=== PATIENT | female | born 1970 | race Caucasian/White ===

== ENCOUNTER → 2019-08-04 07:22 | Outpatient (CLI) | payer OTHER, SELFPAY ==
[2019-08-04 08:36] LABS: Add Manual Diff / Slide Review NO; Basophils Absolute Auto 100 /uL (0-100); Eosinophils Absolute Auto 200 /uL (0-450); Eosinophils Percent Auto 2.9 % (2-4); Hematocrit 42.6 % (36-46); Hemoglobin 14.3 g/dL (12.0-16.0); Lymphocytes Absolute Auto 1800 /uL (1100-4500); Lymphocytes Percent Auto 29.6 % (25-40); Mean Corpuscular HGB Conc 33.5 % (30-36); Mean Corpuscular Hemoglobin 28.4 PG (26-34); Mean Corpuscular Volume 84.7 fL (80-100); Monocytes Absolute Auto 300 /uL (0-900); Monocytes Percent Auto 5.6 % (3-14); Neutrophils Absolute Auto 3700 /uL (1500-7000); Neutrophils Percent Auto 60.9 % (50-75); Platelet Count 197 X10^3/uL (150-400); Red Blood Cell Count 5.03 X10^6/uL (4.0-5.2); Red Cell Distribution Width 12.7 % (11.6-14.8); White Blood Cell Count 6.1 X10^3/uL (4.5-11.0)
[2019-08-04 09:02] LABS: Alanine Aminotransferase 25 IU/L (9-52); Albumin 4.4 g/dL (3.5-5.0); Albumin Globulin Ratio 1.5 (1.0-2.8); Alkaline Phosphatase 77 U/L (38-126); Aspartate Aminotransferase 27 IU/L (14-36); BUN Creatinine Ratio 18.9 (6-22); Bilirubin Total 0.4 mg/dL (0.2-1.3); Blood Urea Nitrogen 17 mg/dL (7-17); Calcium 9.2 mg/dL (8.4-10.2); Carbon Dioxide 29 mmol/L (22-32); Chloride 105 mmol/L (98-107); Cholesterol 215 mg/dL (140-199); Estimated Glomerular Filt Rate > 60.0 mL/min (>60); Globulin 2.9 g/dL (1.7-4.1); Glucose 98 mg/dL (70-100); HDL Cholesterol 55 mg/dL (40-60); HEMOLYSIS < 15 (0-50); LDL Cholesterol Calculated 144 mg/dL (<100); Potassium 4.7 mmol/L (3.4-5.1); Sodium 138 mmol/L (137-145); Total Protein 7.3 g/dL (6.3-8.2); Triglycerides 79 mg/dL (35-150)
[2019-08-04 09:17] LABS: Free T3, Triiodothyronine Free 3.51 pg/mL (2.77-5.27); Free T4, Direct Thyroxine 0.93 ng/dL (0.78-2.19)
[2019-08-04 09:31] LABS: Thyroid Stimulating Hormone 1.98 uIU/mL (0.47-4.68)
[2019-08-07 13:36] LABS: Thyroid Peroxidase Antibodies 5 IU/mL (< 9)
== END ==
PROVIDERS: Visit Provider Naturopath
DX: Z00.00 Encounter for general adult medical examination without abnormal findings (principal); D50.0 Iron deficiency anemia secondary to blood loss (chronic); R53.83 Other fatigue
CPT/HCPCS: 36415; 80053; 80061; 82728; 84439; 84443; 84481; 85025; 86376

== ENCOUNTER → 2020-06-09 14:11 | Outpatient (CLI) | payer OTHER, SELFPAY ==
--- NOTE | 2020-06-09 14:13 | DI.US.S_ITS ---
PROCEDURE: US ABDOMEN LIMITED INDICATIONS: abdominal lump TECHNIQUE: Real-time focused scanning was performed of the abdomen, with image documentation. COMPARISON: None. FINDINGS: Scanning is performed at the area of the periumbilical lump. At this site, just superior to the umbilicus, there is a hernia, which demonstrates a neck measuring 8 millimeters. The herniated material measures 2.8 x 1.5 x 2.3 centimeters. Peristalsis can be seen at the level of the hernia neck. This likely contains a small amount of small bowel as well as fat. IMPRESSION: Hernia seen just superior to the umbilicus. This hernia appears to contain both fat and a small amount of small bowel. A surgical consultation is recommended. If clinically appropriate, a dedicated CT of the abdomen pelvis with IV and oral contrast should also be considered. Dictated by: Dno Carrasquillo M.D. on 06/09/2020 at 14:38 Approved by: Don Carrasquillo M.D. on 06/09/2020 at 14:40
== END ==
PROVIDERS: PCP Registered Nurse; Referring Provider Registered Nurse; Visit Provider Registered Nurse
DX: K42.9 Umbilical hernia without obstruction or gangrene (principal)
CPT/HCPCS: 76705

== ENCOUNTER → 2020-06-24 06:55 | Outpatient (CLI) | payer OTHER, SELFPAY ==
[2020-06-24 07:40] LABS: Add Manual Diff / Slide Review NO; Basophils Absolute Auto 100 /uL (0-100); Basophils Percent Auto 0.7 % (0-2); Eosinophils Absolute Auto 200 /uL (0-450); Eosinophils Percent Auto 2.8 % (2-4); Hematocrit 41.1 % (36-46); Hemoglobin 13.7 g/dL (12.0-16.0); Lymphocytes Absolute Auto 1800 /uL (1100-4500); Lymphocytes Percent Auto 24.7 % (25-40); Mean Corpuscular HGB Conc 33.4 % (30-36); Mean Corpuscular Hemoglobin 28.5 PG (26-34); Mean Corpuscular Volume 85.4 fL (80-100); Monocytes Absolute Auto 400 /uL (0-900); Monocytes Percent Auto 5.5 % (3-14); Neutrophils Absolute Auto 5000 /uL (1500-7000); Neutrophils Percent Auto 66.3 % (50-75); Platelet Count 220 X10^3/uL (150-400); Red Blood Cell Count 4.82 X10^6/uL (4.0-5.2); Red Cell Distribution Width 12.6 % (11.6-14.8); White Blood Cell Count 7.5 X10^3/uL (4.5-11.0)
[2020-06-24 08:14] LABS: Cholesterol 199 mg/dL (140-199); HDL Cholesterol 63 mg/dL (40-60); LDL Cholesterol Calculated 121 mg/dL (<100); Triglycerides 73 mg/dL (35-150)
--- NOTE | 2020-06-24 08:21 | DI.CT.S_ITS ---
PROCEDURE: CT ABDOMEN PELVIS W CON INDICATIONS: umbilical LLQ pain r/o diverticulitis.Incarcerated hernia TECHNIQUE: After the administration of intravenous contrast, 5 mm thick sections acquired from the diaphragm to the symphysis. 5 mm coronal and sagittal reformats were acquired. For radiation dose reduction, the following was used: automated exposure control, adjustment of mA and/or kV according to patient size. COMPARISON: None. FINDINGS: Image quality: Excellent. ABDOMEN: Lung bases: Lung bases are clear. Heart size is normal. Solid organs: Liver is normal in size and enhancement. Gallbladder appears normal . Biliary system is non dilated. Pancreas enhances normally. Spleen is normal in size and enhancement. No adrenal nodules. Kidneys demonstrate normal size and enhancement, without hydronephrosis. Peritoneum and bowel: Bowel loops demonstrate normal wall thickness and caliber. No free fluid or air. Nodes and vessels: No retroperitoneal or mesenteric adenopathy by size criteria. Aorta and inferior vena cava are normal in size. Miscellaneous: No ventral hernias. PELVIS: Genitourinary: Bladder wall thickness is normal. Miscellaneous: No inguinal hernias or adenopathy. At the left lower quadrant involving the far inferior aspect of the descending colon there is mild peridiverticular inflammation in the mesenteric fat. No abscess is present. Diverticulosis is present, mild in severity, elsewhere. Bones: No suspicious bony lesions. No vertebral body compression fractures. IMPRESSION: Mild acute diverticulitis involving the transition from the descending colon into the sigmoid colon, without peridiverticular abscess. No additional abnormality elsewhere seen. Only minimal diverticulosis is present without inflammation through the remainder of the sigmoid colon. Dictated by: Randolph Nolasco M.D. on 06/24/2020 at 8:26 Approved by: Randolph Nolasco M.D. on 06/24/2020 at 8:35
== END ==
PROVIDERS: PCP Registered Nurse; Referring Provider Registered Nurse; Visit Provider Specialist
DX: K57.32 Diverticulitis of large intestine without perforation or abscess without bleeding (principal); R10.32 Left lower quadrant pain; E78.5 Hyperlipidemia, unspecified
CPT/HCPCS: 36415; 74177; 80061; 85025; Q9967

== ENCOUNTER → 2020-07-01 13:37 | Outpatient (CLI) | payer OTHER, SELFPAY ==
[2020-07-03 15:05] LABS: COVID19 Sendout Not Detected (Not Detect)
== END ==
PROVIDERS: PCP Registered Nurse; Visit Provider Physician Assistant
DX: Z11.59 Encounter for screening for other viral diseases (principal)
CPT/HCPCS: 87635

== ENCOUNTER 2020-07-04 09:17 | Day surgery (SDC) | payer OTHER, SELFPAY ==
[2020-06-29 10:47] VITALS: BMI 28.3
[2020-07-04] VITALS (9 sets, daily range): BP systolic 108–120; BP diastolic 68–76; PULSE 61–78; RESP 11–20; TEMP 36.4–36.9; O2SAT 95–97; BMI 28.5
[2020-07-04] MEDS: ACETAMINOPHEN 325 MG TABLET 975 MG PO (10:04)
[2020-07-04] MEDS: LACTATED RINGERS 1,000 ML 100 ML IV (10:05)
[2020-07-04] MEDS: SCOPOLAMINE 1 PATCH TOP (10:15)
--- NOTE | 2020-07-04 10:32 | PM.PREOP ---
Pre-operative Note COVID-19 COVID-19 status: Negative Result date/Date tested (Pos, Neg/Pending): 07/01/20 Interval Note History & Physical reviewed/Exam performed by Physician: Yes Changes to H&P: No
[2020-07-04] MEDS: CEFAZOLIN 2 GM/100 ML FROZ.PIGGY IV (10:44)
--- NOTE | 2020-07-04 11:11 | SUR.OPER ---
Supine on padded OR bed, head on pillow, arms secured on padded arm boards at <90 degrees abduction, legs uncrossed, safety belt at thigh, tape over blanket over lower legs.
[2020-07-04] MEDS: BUPIVACAINE 0.5% (PF) VIAL 30 ML INJ (11:13)
--- NOTE | 2020-07-04 11:51 | P.OP_ITS ---
Operative Date/Time/Diagnoses Date of procedure: 07/04/20 Time of procedure: 11:52 Pre-op diagnosis: Supraumbilical ventral hernia Post-op diagnosis: same (Incarcerated) Procedure & Clinicians Procedure: Repair without mesh Same procedure as scheduled: Yes Indications: Symptomatic hernia above the umbilicus. Surgeon: Markos Harding Click Yes if Unassisted: Yes Anesthesia Type: General Operative Notes Findings: Small defect above the umbilicus. Closed with 1 stitch [id number] suture. Incarcerated fat found and had to be removed as I could not reduce it due to the small size of her hernia. Closure Type: primary Specimen(s): none sent Prosthetic devices, grafts, tissues, transplants, or devices: None Estimated Blood Loss (mL): 5 Blood products transfused: none Procedure in detail: Patient was placed supine on the operating room table and underwent general LMA anesthesia. She was prepped and draped in the usual fashion. A small incision was made above the umbilicus and carried down under direct vision to the level of the hernia sac it was from surrounding structures and was above the umbilicus. Sac was entered and the preperitoneal fat within it could not be reduced to the small size of the hernia. I therefore removed the fat and cleared the fascial edge. I then closed the defect with a 1. [id number] Ethibond suture. The subcu was closed with interrupted 3 0 Vicryl and the skin was closed running 4 0 Vicryl subcuticular stitch and Steri- Strips. Dressing was applied and the patient was awakened and taken recovery area in good condition. Complications: none Post-operative Condition: stable Disposition: PACU Plan for aftercare: Follow-up in the office
[2020-07-04] MEDS: OXYCODONE IR 5 MG TABLET PO ×2 (12:17→12:47)
--- NOTE | 2020-07-04 12:31 | SUR.PHASEI ---
Tolerating PO intake well/medicated as charted. Pt drowsy, responsive and appropriate. Report was given to Rodrigue Stephenson RN. Dressing CDI
== END 2020-07-04 13:21 | disposition home or self-care (01) ==
PROVIDERS: PCP Registered Nurse; Referring Provider Specialist; Visit Provider Specialist
PROC: (CPT 49561; principal; 2020-07-04 10:45)
DX: K43.6 Other and unspecified ventral hernia with obstruction, without gangrene (principal)
CPT/HCPCS: 49561; 49568; J0330; J0690; J1100; J1885; J2250; J2405; J2704; J3010

== ENCOUNTER → 2020-08-23 14:09 | Outpatient (CLI) | payer OTHER, SELFPAY ==
[2020-08-23 15:15] LABS: Alanine Aminotransferase 33 IU/L (<35); Albumin 4.3 g/dL (3.5-5.0); Albumin Globulin Ratio 1.5 (1.0-2.8); Alkaline Phosphatase 76 U/L (38-126); Aspartate Aminotransferase 34 IU/L (14-36); Bilirubin Total 0.5 mg/dL (0.2-1.3); Blood Urea Nitrogen 18 mg/dL (7-17); Calcium 9.3 mg/dL (8.4-10.2); Carbon Dioxide 29 mmol/L (22-32); Chloride 104 mmol/L (98-107); Estimated Glomerular Filt Rate > 60.0 mL/min (>60); Globulin 2.9 g/dL (1.7-4.1); Glucose 97 mg/dL (70-100); HEMOLYSIS < 15 (0-50); Potassium 3.6 mmol/L (3.4-5.1); Sodium 137 mmol/L (137-145); Total Protein 7.2 g/dL (6.3-8.2)
== END ==
PROVIDERS: PCP Registered Nurse; Referring Provider Registered Nurse; Visit Provider Registered Nurse
DX: Z79.899 Other long term (current) drug therapy (principal)
CPT/HCPCS: 36415; 80053

== ENCOUNTER → 2021-02-02 09:52 | Outpatient (CLI) | payer OTHER, SELFPAY ==
[2021-02-02] MEDS: COVID-19 VACC #1, MRNA(MOD) 100 MCG/0.5 ML VIAL IM (09:57)
== END ==
PROVIDERS: PCP Registered Nurse; Visit Provider Internal Medicine
DX: Z23 Encounter for immunization (principal)
CPT/HCPCS: 0011A; 91301

== ENCOUNTER → 2021-03-02 09:39 | Outpatient (CLI) | payer OTHER, SELFPAY ==
[2021-03-02] MEDS: COVID-19 VACC #2, MRNA(MOD) 100 MCG/0.5 ML VIAL IM (09:48)
== END ==
PROVIDERS: PCP Registered Nurse; Visit Provider Internal Medicine
DX: Z23 Encounter for immunization (principal)
CPT/HCPCS: 0012A; 91301

== ENCOUNTER → 2021-05-30 09:36 | Outpatient (CLI) | payer OTHER, SELFPAY ==
[2021-05-30 10:39] LABS: COVID19 -Nasal RAPID Negative (Negative)
== END ==
PROVIDERS: PCP Registered Nurse; Visit Provider Surgery
DX: Z20.822 Contact with and (suspected) exposure to COVID-19 (principal)
CPT/HCPCS: 87635; C9803

== ENCOUNTER 2021-05-31 13:25 | Day surgery (SDC) | payer OTHER, SELFPAY ==
[2021-05-25 14:20] VITALS: BMI 29.9
[2021-05-31] VITALS (12 sets, daily range): BP systolic 102–145; BP diastolic 46–97; PULSE 65–77; RESP 12–21; TEMP 36.2–36.8; O2SAT 94–98; BMI 29.9
--- NOTE | 2021-05-31 14:00 | PM.PREOP ---
Pre-operative Note COVID-19 COVID-19 status: Negative Result date/Date tested (Pos, Neg/Pending): 05/30/21 Interval Note History & Physical reviewed/Exam performed by Physician: Yes Changes to H&P: No
[2021-05-31] MEDS: LACTATED RINGERS 1,000 ML 42 ML IV ×2 (14:04→16:24)
--- NOTE | 2021-05-31 15:17 | SUR.OPER ---
Part 1. Colonoscopy: Supine on stretcher, head on pillow.
--- NOTE | 2021-05-31 15:19 | SUR.OPER ---
Supine on padded OR bed, head on pillow, arms secured on padded arm boards at <90 degrees abduction, legs uncrossed, safety belt at thigh, tape over blanket over lower legs.
[2021-05-31] MEDS: BUPIVACAINE 0.5% (PF) VIAL 30 ML INJ (15:23)
[2021-05-31] MEDS: CEFAZOLIN 1 GM VIAL 2 GM IV (15:37)
[2021-05-31] MEDS: HYDROMORPHONE 2 MG INJ IV (17:08)
[2021-05-31] MEDS: fentaNYL 100 MCG/2 ML INJ IV ×3 (17:16→17:48)
[2021-05-31] MEDS: OXYCODONE/ACETAMINOPHEN 5/325 TABLET 1 TAB PO (17:21)
--- NOTE | 2021-05-31 17:21 | PM.OP.ENDO ---
Operative Date/Time/Diagnoses Date of procedure: 05/31/21 Time of procedure: 17:21 Pre-op diagnosis: Screening for colon cancer Post-op diagnosis: same (Diverticulosis) Procedure & Clinicians Study performed: Colonoscopy Same procedure as scheduled: Yes Indications: Screening due to age. This is her 1st colonoscopy for screening.. Her prior colonoscopy was done many years ago and was not related to screening Surgeon: Markos Harding Procedure Notes SCOAP/Timeout: Performed Procedure in detail: The patient was placed supine on her bed. She underwent general endotracheal anesthesia because once this was completed she was about to undergo a repair of a ventral hernia.. Digital exam was remarkable for decreased sphincter tone. The scope was inserted and advanced through the rectum into the sigmoid, descending, transverse, and ascending colon. Patient was noted to have diverticulosis principally in the sigmoid.. The cecum was reached identified by the ileocecal valve and the appendiceal opening. The scope was gradually brought out. No Polyps were found. The scope ultimately was retroflexed in the rectum. The appearance was normal. The scope was removed and the patient tolerated the procedure well. Scope withdrawal time: Just over 6 minutes Sedation minutes: 0 (General anesthesia) Specimen(s): none sent Complications: none Impression: Colonoscopy for screening purposes in 10 years
[2021-05-31] MEDS: ONDANSETRON 4 MG/2 ML INJ IV (17:24)
--- NOTE | 2021-05-31 17:24 | P.OP_ITS ---
Operative Date/Time/Diagnoses Date of procedure: 05/31/21 Time of procedure: 17:00 Pre-op diagnosis: Ventral hernia possible recurrence Post-op diagnosis: same (Recurrence) Procedure & Clinicians Procedure: Repair with underlay of mesh Same procedure as scheduled: Yes Indications: Symptomatic hernia in her umbilicus Surgeon: Markos Harding Click Yes if Unassisted: Yes Anesthesia Type: General Operative Notes Findings: Defect approximately 2-1/2 by 2.5 cm. It appeared to be adjacent to the prior hernia repair which seemed to be intact. Closure Type: primary Specimen(s): none sent Prosthetic devices, grafts, tissues, transplants, or devices: 2.5 in circular to sided mesh placed in the preperitoneal space Estimated Blood Loss (mL): 15 Procedure in detail: Patient was placed supine on the operating room table. She already was intubated from a prior colonoscopy. She was given IV antibiotics just prior to proceeding with this operation. She had a in old belly button ring and I excised this area as the hernia was in the vicinity. The incision was carried down level hernia sac. The hernia sac was from surrounding structures. I removed most of the sac and identified the fascial edge. I was able to dissect the peritoneum off the overlying muscle and was able to close this with a running 3-0 an interrupted 3-0 Vicryl the peritoneum was dissected back far enough so that I could place a circular mesh under the muscle layer. It was placed on top of the closed peritoneum. This was a 2.5 in diameter circular mesh. Once I was able to place it underneath the fascia was closed incorporating the mesh into the closure such that it would be pulled up snugly against the anterior abdominal wall. The closure was accomplished superior to inferior using 1. Ethibond suture. The subQ was closed with interru pted 3-0 Vicryl. The skin was closed with interrupted 4-0 Vicryl subcuticular stitches and a single 5 0 nylon suture was also placed. Dressing was applied and the patient was awakened extubated and taken the recovery area in good condition. Complications: none Post-operative Condition: stable Disposition: PACU
[2021-05-31] MEDS: KETOROLAC 30 MG/ML VIAL IV (17:52)
== END 2021-05-31 18:40 | disposition home or self-care (01) ==
PROVIDERS: PCP Registered Nurse; Referring Provider Specialist; Visit Provider Specialist
PROC: 0DJD8ZZ Inspection of Lower Intestinal Tract, Via Natural or Artificial Opening Endoscopic (ICD-10-PCS; CPT 45378; principal; 2021-05-31 14:45)
PROC: (CPT 49565; 2021-05-31 14:45)
DX: K43.2 Incisional hernia without obstruction or gangrene (principal); Z12.11 Encounter for screening for malignant neoplasm of colon; F41.9 Anxiety disorder, unspecified; F32.9 Major depressive disorder, single episode, unspecified; K57.30 Diverticulosis of large intestine without perforation or abscess without bleeding
CPT/HCPCS: 49565; 45378; 49568; C1781; J0330; J0690; J1100; J1170; J1885; J2405; J2704; J3010

== ENCOUNTER → 2021-07-31 08:53 | Outpatient (CLI) | payer OTHER, SELFPAY ==
--- NOTE | 2021-07-31 08:54 | DI.RAD.S_ITS ---
PROCEDURE: XR KNEE RT 3V INDICATIONS: Right knee pain TECHNIQUE: 3 views of the knee were acquired. COMPARISON: None. FINDINGS: Bones: No fractures or dislocations. A fabella is seen. No suspicious bony lesions. Osteophytosis about the lateral aspect, patellofemoral compartment. Soft tissues: Suprapatellar soft tissue fullness, concerning for small to moderate joint effusion. No suspicious soft tissue calcifications. IMPRESSION: No acute osseous abnormality. Dictated by: Cain Tang M.D. on 07/31/2021 at 9:29 Approved by: Cain Tang M.D. on 07/31/2021 at 9:30
[2021-07-31 10:32] LABS: Alanine Aminotransferase 20 IU/L (<35); Albumin 4.2 g/dL (3.5-5.0); Albumin Globulin Ratio 1.7 (1.0-2.8); Alkaline Phosphatase 71 U/L (38-126); Aspartate Aminotransferase 24 IU/L (14-36); BUN Creatinine Ratio 19.5 (6-22); Bilirubin Total 0.4 mg/dL (0.2-1.3); Blood Urea Nitrogen 16 mg/dL (7-17); Calcium 9.6 mg/dL (8.4-10.2); Carbon Dioxide 28 mmol/L (22-32); Chloride 104 mmol/L (98-107); Cholesterol 235 mg/dL (140-199); Estimated Glomerular Filt Rate > 60.0 mL/min (>60); Globulin 2.5 g/dL (1.7-4.1); Glucose 88 mg/dL (70-100); HDL Cholesterol 81 mg/dL (40-60); HEMOLYSIS < 15 (0-50); LDL Cholesterol Calculated 129 mg/dL (<100); Potassium 4.6 mmol/L (3.4-5.1); Sodium 138 mmol/L (137-145); Total Protein 6.7 g/dL (6.3-8.2); Triglycerides 126 mg/dL (35-150)
== END ==
PROVIDERS: PCP Registered Nurse; Referring Provider Registered Nurse; Visit Provider Registered Nurse
DX: M25.561 Pain in right knee (principal); E78.5 Hyperlipidemia, unspecified
CPT/HCPCS: 36415; 73562; 80053; 80061

== ENCOUNTER → 2021-10-01 11:59 | Outpatient (CLI) | payer OTHER, SELFPAY ==
[2021-10-01 14:20] LABS: COVID19 -Nasal RAPID Negative (Negative)
== END ==
PROVIDERS: PCP Registered Nurse; Visit Provider Physician Assistant
DX: Z20.822 Contact with and (suspected) exposure to COVID-19 (principal)
CPT/HCPCS: 87635

== ENCOUNTER 2022-02-12 12:46 | Emergency (ER) | payer OTHER, SELFPAY ==
[2022-02-12] VITALS (11 sets, daily range): BP systolic 125–160; BP diastolic 60–71; PULSE 57–72; RESP 12–26; TEMP 36.4–36.9; O2SAT 95–99; BMI 31.8
--- NOTE | 2022-02-12 13:10 | DI.RAD.S_ITS ---
PROCEDURE: XR CHEST 1V INDICATIONS: chest pain TECHNIQUE: One view of the chest was acquired. COMPARISON: None. FINDINGS: Surgical changes and devices: None. Lungs and pleura: Lungs are clear. No pleural effusions or pneumothorax. Mediastinum: Mediastinal contours appear normal. Heart size is normal. Bones and chest wall: No suspicious bony lesions. Overlying soft tissues appear unremarkable. IMPRESSION: No evidence acute pulmonary process. Dictated by: Eduar Burrows M.D. on 02/12/2022 at 13:41 Approved by: Eduar Burrows M.D. on 02/12/2022 at 13:41
[2022-02-12 13:25] LABS: Add Manual Diff / Slide Review NO; Basophils Absolute Auto 100 /uL (0-100); Basophils Percent Auto 1.1 % (0-2); Eosinophils Absolute Auto 200 /uL (0-450); Eosinophils Percent Auto 3.1 % (2-4); Hematocrit 41.8 % (36-46); Hemoglobin 14.3 g/dL (12.0-16.0); Lymphocytes Absolute Auto 2200 /uL (1100-4500); Lymphocytes Percent Auto 30.8 % (25-40); Mean Corpuscular HGB Conc 34.2 % (30-36); Mean Corpuscular Hemoglobin 28.5 PG (26-34); Mean Corpuscular Volume 83.3 fL (80-100); Monocytes Absolute Auto 500 /uL (0-900); Monocytes Percent Auto 6.8 % (3-14); Neutrophils Absolute Auto 4100 /uL (1500-7000); Neutrophils Percent Auto 58.2 % (50-75); Platelet Count 201 X10^3/uL (150-400); Red Blood Cell Count 5.01 X10^6/uL (4.0-5.2); Red Cell Distribution Width 13.2 % (11.6-14.8)
[2022-02-12 13:45] LABS: Alanine Aminotransferase 22 IU/L (<35); Albumin 4.6 g/dL (3.5-5.0); Albumin Globulin Ratio 1.5 (1.0-2.8); Alkaline Phosphatase 85 U/L (38-126); Aspartate Aminotransferase 27 IU/L (14-36); BUN Creatinine Ratio 18.4 (6-22); Bilirubin Total 0.3 mg/dL (0.2-1.3); Blood Urea Nitrogen 14 mg/dL (7-17); Calcium 9.1 mg/dL (8.4-10.2); Carbon Dioxide 26 mmol/L (22-32); Chloride 105 mmol/L (98-107); Creatine Kinase 54 U/L (30-135); Estimated Glomerular Filt Rate > 60 mL/min (>60); Globulin 3.1 g/dL (1.7-4.1); Glucose 106 mg/dL (70-100); HEMOLYSIS < 15 (0-50); Lipase 144 U/L (23-300); Sodium 139 mmol/L (137-145); Total Protein 7.7 g/dL (6.3-8.2)
[2022-02-12 13:55] LABS: Troponin I < 0.012 ng/mL (0.01-0.034)
--- NOTE | 2022-02-12 15:27 | ED_ITS ---
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 Menopausal presenting today with 3 days of chest heaviness. She states of been ongoing for the last 3 days she feels fatigued tired and achiness in her chest. Denies any provocation or palliation. No shortness of breath no orthopnea no fever or chills. She does travel very regularly for work flies on short flights to [place]. Dad had a stent placed under the age of 60. No prior history of DVTs or PEs. Denies any calf pain leg pain nausea vomiting abdominal pain or other symptoms Related Data Home Medications Medication Instructions Recorded Confirmed estradiol progesterone See Rx Instructions PO .COMPLEX 07/25/21 12/14/21 tretinoin 0.025 % topical cream 1 applic TOPICAL BEDTIME 07/25/21 12/14/21 Previous Rx's Medication Instructions Recorded hydroxyzine HCl 50 mg tablet 50 mg PO BEDTIME PRN #30 tab 07/25/21 Allergies Allergy/AdvReac Type Severity Reaction Status Date / Time citalopram Allergy Intermediate severe Verified 02/12/22 13:05 anxiety corn AdvReac Intestinal/skin Verified 02/12/22 13:05 Issues Review of Systems Review of Systems Narrative: GENERAL: Denies chills, fatigue, malaise, fever, sweats, travel HEENT: Denies sinus pain, ear pain, sore throat, difficulty swallowing, neck pain RESPIRATORY: Denies dyspnea, cough, wheezing, hemoptysis, sputum. CARDIOVASCULAR: See HPI GASTROINTESTINAL: Denies nausea, vomiting, abdominal pain, diarrhea, constipation, melena. : Denies dysuria, frequency, incontinence, hematuria, urinary retention, flank pain. MUSCULOSKELETAL: Denies weakness, joint pain, or bony pain SKIN: No rash, no erythema, no pruritus NEUROLOGIC: Denies weakness, dizziness, headache, numbness, change in speech, confusion PSYCHIATRIC: No concerning psychosocial issues. 12 point review of systems is negative except for those stated above and HPI Patient History Medical History Anxiety Depression Diverticulitis Easy bruisability Right knee pain Seasonal allergies Vaginitis Surgical History Hx of appendectomy Hx of hernia repair (07/04/20) Hx of hysterectomy (2017) Hx of nasal septoplasty (2014) Status post middle ear reconstruction (2015) Social History marital status: household members: spouse and children occupational status: employed Smoking Status: Never smoker alcohol intake: current substance use type: does not use Smoking Status: Never smoker alcohol intake frequency: a few times a week Substance Use Type: does not use Exam Initial Vital Signs Initial Vital Signs: Vital Signs Temperature 97.6 F 02/12/22 13:01 Pulse Rate 72 02/12/22 13:01 Respiratory Rate 16 02/12/22 13:01 Blood Pressure 160/70 H 02/12/22 13:01 Pulse Oximetry 98 02/12/22 13:01 GENERAL: Alert pleasant well-appearing 51-year-old female and in no acute distress. HEENT: Head atraumatic,EOMI, pupils reactive, face symmetric, moist] mucous membranes CARDIOVASCULAR: Regular rate and rhythm without murmurs, rubs or gallops. RESPIRATORY: Breath sounds equal bilaterally, no wheezes rales or rhonchi. ABDOMEN: Soft, nontender. Normoactive bowel sounds all 4 quadrants. No gu arding or rebound. EXTREMITIES: Normal range of motion, no clubbing or edema. Neurovascularly intact NEUROLOGICAL: Alert and oriented x4.Normal gait and speech. SKIN: Warm, dry, no laceration, no petechiae, no rashes or lesions. Scores HEART Score Heart Score history: Slightly Suspicious Heart Score EKG: Normal Heart Score Age: 45-64 years old Heart Score risk factors: 1-2 risk factors Heart Score troponin: < or = to normal limit Heart Score Total: 2 PERC Score Age greater than or equal to 50 years: Yes Heart rate greater than or equal to 100 bpm: No Room Air O2 Sat less than 95%: No Unilateral leg swelling: No Recent trauma or surgery: No Hemoptysis: No Prior PE or DVT: No Hormone Use: Yes Total PERC Score: 2 Course Orders Ordered: ED Orders 02/12/22 13:00 EKG-12 Lead Routine 02/12/22 13:05 Complete Blood Count AUTO DIFF Stat Comprehensive Metabolic Panel Stat Lipase Stat Troponin & CK Cardiac Panel Stat 02/12/22 13:10 XR chest 1V Stat 02/12/22 15:05 D Dimer Stat Trop I [Troponin I] Stat 02/12/22 15:30 COVID19 -Nasal RAPID/Pre-Proc Stat Vital Signs Vital signs: Vital Signs - 8 hr 02/12/22 13:01 02/12/22 13:13 02/12/22 13:30 Temperature 97.6 F Pulse Rate 72 63 61 Respiratory Rate 16 21 19 Blood Pressure 160/70 H 140/66 Pulse Oximetry 98 98 99 02/12/22 14:00 02/12/22 14:30 02/12/22 15:00 Temperature Pulse Rate 59 L 57 L 64 Respiratory Rate 12 14 17 Blood Pressure 129/63 132/61 146/64 H Pulse Oximetry 98 98 97 02/12/22 15:30 02/12/22 15:31 02/12/22 16:00 Temperature Pulse Rate 65 65 60 Respiratory Rate 23 26 H 16 Blood Pressure 147/71 H Pulse Oximetry 96 97 95 02/12/22 16:01 02/12/22 17:03 Temperature 98.4 F Pulse Rate 61 70 Respiratory Rate 14 16 Blood Pressure 125/60 129/64 Pulse Oximetry 95 98 MDM - Chest Pain Lab Data Result diagrams: 02/12/22 13:05 02/12/22 13:05 Labs: Lab Results 02/12/22 02/12/22 02/12/22 Range/Units 13:05 13:05 15:05 WBC 7.0 (4.5-11.0) X10^3/uL RBC 5.01 (4.0-5.2) X10^6/uL Hgb 14.3 (12.0-16.0) g/dL Hct 41.8 (36-46) % MCV 83.3 (80-100) fL MCH 28.5 (26-34) PG MCHC 34.2 (30-36) % RDW 13.2 (11.6-14.8) % Plt Count 201 (150-400) X10^3/uL Neut % (Auto) 58.2 (50-75) % Lymph % (Auto) 30.8 (25-40) % [place] % (Auto) 6.8 (3-14) % Eos % (Auto) 3.1 (2-4) % Baso % (Auto) 1.1 (0-2) % Neut # (Auto) 4100 (5778-0151) /uL Lymph # (Auto) 2200 (6544-1908) /uL [place] # (Auto) 500 (0-900) /uL Eos # (Auto) 200 (0-450) /uL Baso # (Auto) 100 (0-100) /uL D-Dimer (<230) ng/mL Sodium 139 (137-145) mmol/L Potassium 4.0 (3.4-5.1) mmol/L Chloride 105 (98-107) mmol/L Carbon Dioxide 26 (22-32) mmol/L BUN 14 (7-17) mg/dL Creatinine 0.76 (0.52-1.04) mg/dL Estimated GFR > 60 (>60) mL/min BUN/Creatinine Ratio 18.4 (6-22) Glucose 106 H (70-100) mg/dL Calcium 9.1 (8.4-10.2) mg/dL Total Bilirubin 0.3 (0.2-1.3) mg/dL AST 27 (14-36) IU/L ALT 22 (<35) IU/L Alkaline Phosphatase 85 (38-126) U/L Total Creatine Kinase 54 (30-135) U/L CK-MB (CK-2) TNP CK-MB (CK-2) Rel Index TNP Troponin I < 0.012 < 0.012 (0.01-0.034) ng/mL Total Protein 7.7 (6.3-8.2) g/dL Albumin 4.6 (3.5-5.0) g/dL Globulin 3.1 (1.7-4.1) g/dL Albumin/Globulin Ratio 1.5 (1.0-2.8) Lipase 144 (23-300) U/L SARS-CoV-2 (PCR) (Negative) 02/12/22 02/12/22 Range/Units 15:05 15:30 WBC (4.5-11.0) X10^3/uL RBC (4.0-5.2) X10^6/uL Hgb (12.0-16.0) g/dL Hct (36-46) % MCV (80-100) fL MCH (26-34) PG MCHC (30-36) % RDW (11.6-14.8) % Plt Count (150-400) X10^3/uL Neut % (Auto) (50-75) % Lymph % (Auto) (25-40) % [place] % (Auto) (3-14) % Eos % (Auto) (2-4) % Baso % (Auto) (0-2) % Neut # (Auto) (2884-0844) /uL Lymph # (Auto) (5543-1416) /uL [place] # (Auto) (0-900) /uL Eos # (Auto) (0-450) /uL Baso # (Auto) (0-100) /uL D-Dimer < 200 (<230) ng/mL Sodium (137-145) mmol/L Potassium (3.4-5.1) mmol/L Chloride (98-107) mmol/L Carbon Dioxide (22-32) mmol/L BUN (7-17) mg/dL Creatinine (0.52-1.04) mg/dL Estimated GFR (>60) mL/min BUN/Creatinine Ratio (6-22) Glucose (70-100) mg/dL Calcium (8.4-10.2) mg/dL Total Bilirubin (0.2-1.3) mg/dL AST (14-36) IU/L ALT (<35) IU/L Alkaline Phosphatase (38-126) U/L Total Creatine Kinase (30-135) U/L CK-MB (CK-2) CK-MB (CK-2) Rel Index Troponin I (0.01-0.034) ng/mL Total Protein (6.3-8.2) g/dL Albumin (3.5-5.0) g/dL Globulin (1.7-4.1) g/dL Albumin/Globulin Ratio (1.0-2.8) Lipase (23-300) U/L SARS-CoV-2 (PCR) Negative (Negative) ECG Data Interpretation: Normal sinus rhythm rate 61 DE interval 156 QRS [address] changes T-wave inversion noted in lead 3 only no priors to compare MDM Narrative Medical decision making narrative: The patient is having some chest heaviness ongoing for the last few days. She travels regularly. She is low risk heart score a negative D-dimer and a negative COVID test. At this time I recommend close outpatient follow-up need for admission at this time. Discharge Plan Departure Patient Disposition: Home Clinical Impression: Atypical chest pain Instructions: DI for Atypical Chest Pain Activity Restrictions/Additional Instructions: *You have been diagnosed with atypical chest pain *What to do: At this time blood work is overall reassuring you do not have COVID. I recommend outpatient follow-up primary care provider which may require stress test. *Continue to take medications as directed *Follow up with your primary care provider in 2-3 days or call [phone] *Return to ER if you should have increasing chest discomfort shortness the truck palpitations or any new, worsening or concerning symptoms Prescriptions: No Action tretinoin 0.025 % cream 1 applic topical BEDTIME 0RF estradiol progesterone See Rx Instructions PO .COMPLEX 0RF Rx Instructions: estradiol/progesterone 4 m 1/100 mg capsule PO; hydroxyzine HCl 50 mg tablet 50 mg PO BEDTIME PRN (Reason: anxiety; insomnia) Qty: 30 2RF Referrals: Ana Paula Schreiber ARNP [Primary Care Provider] -
[2022-02-12 15:37] LABS: Troponin I < 0.012 ng/mL (0.01-0.034)
[2022-02-12 15:50] LABS: D Dimer < 200 ng/mL (<230)
[2022-02-12 16:36] LABS: COVID19 -Nasal RAPID Negative (Negative)
== END 2022-02-12 17:04 | disposition home or self-care (01) ==
PROVIDERS: Emergency Provider Emergency Medicine; PCP Registered Nurse
DX: R07.89 Other chest pain (principal); Z20.822 Contact with and (suspected) exposure to COVID-19
CPT/HCPCS: 36415; 71045; 80053; 82550; 83690; 84484; 85025; 85379; 87635; 93005; 93010; 99284; C9803

== ENCOUNTER → 2022-03-29 13:53 | Outpatient (CLI) | payer OTHER, SELFPAY ==
--- NOTE | 2022-03-29 | DI.MG.S_ITS ---
BILATERAL DIGITAL SCREENING MAMMOGRAM 3D/2D WITH CAD: 03/29/2022 CLINICAL: Routine screening. No prior exams were available for comparison. There are scattered fibroglandular elements in both breasts. Current study was also evaluated with a Computer Aided Detection (CAD) system. No significant masses, calcifications, or other findings are seen in either breast. IMPRESSION: NEGATIVE There is no mammographic evidence of malignancy. A 1 year screening mammogram is recommended. This exam was interpreted at Station ID: [id number]. NOTE: For mammograms, a report in lay terms will be sent to the patient. Approximately 15% of breast malignancies will not be visualized mammographically. In the management of a palpable breast mass, a negative mammogram must not discourage biopsy of a clinically suspicious lesion. Electronically Signed By: Gian velasquez/tonya:03/29/2022 15:13:36 letter sent: Normal Exam ACR BI-RADS Category 1: Negative [id number]
== END ==
PROVIDERS: PCP Registered Nurse Diabetes Educator; Referring Provider Registered Nurse Diabetes Educator; Visit Provider Registered Nurse Diabetes Educator
DX: Z12.31 Encounter for screening mammogram for malignant neoplasm of breast (principal)
CPT/HCPCS: 77063; 77067

== ENCOUNTER → 2022-03-29 16:34 | Outpatient (CLI) | payer OTHER, SELFPAY ==
[2022-03-29 19:14] LABS: Erythrocyte Sedimentation Rate 4 MM/HR (0-20)
[2022-03-29 22:12] LABS: Follicle Stimulating Hormone 63.2 mIU/mL
[2022-04-01 15:25] LABS: C-Reactive Protein Quant < 0.5 mg/dL (<1.0)
[2022-04-01 15:32] LABS: Rheumatoid Factor < 8.6 IU/mL (<12.0)
[2022-04-01 18:06] LABS: TSH w/ Reflex to FT4 1.41 uIU/mL (0.47-4.68)
[2022-04-02 21:50] LABS: CCP Antibodies IgG/IgA 3 units (0-19)
[2022-04-03 17:21] LABS: ANA Screen, IFA Negative (.)
== END ==
PROVIDERS: PCP Registered Nurse Diabetes Educator; Referring Provider Registered Nurse Diabetes Educator; Visit Provider Registered Nurse Diabetes Educator
DX: M25.40 Effusion, unspecified joint (principal); R07.89 Other chest pain; R53.83 Other fatigue; R63.5 Abnormal weight gain
CPT/HCPCS: 36415; 83001; 84443; 85651; 86038; 86140; 86200; 86430

== ENCOUNTER → 2022-04-10 17:02 | Outpatient (CLI) | payer OTHER, SELFPAY ==
--- NOTE | 2022-04-10 17:04 | DI.US.S_ITS ---
PROCEDURE: US EXTREMITY NONVASC UPPER LT INDICATIONS: eval soft mass PIP joint L 3rd finger TECHNIQUE: Real-time scanning was performed of the 3rd finger, with image documentation. COMPARISON: None. FINDINGS: Examination over dorsal aspect of 3rd finger shows a 7 x 2 x 6 mm anechoic structure in in subcutaneous soft tissue at patient's reported area of palpable lump. No internal vascularity is seen. No peripheral hypervascularity is noted. IMPRESSION: Finding likely represent a small ganglion cyst over dorsal aspect of 3rd digit at the level of PIP joint. Clinical correlation and follow-up is recommended. Dictated by: Mian Obrien M.D. on 04/11/2022 at 11:07 Approved by: Mian Obrien M.D. on 04/11/2022 at 11:08
--- NOTE | 2022-04-10 17:04 | DI.RAD.S_ITS ---
PROCEDURE: XR HAND LT MIN 3V INDICATIONS: eval soft mass PIP joint L 3rd finger TECHNIQUE: 3 views of the hand(s) acquired. COMPARISON: None. FINDINGS: Bones: No fractures or dislocations. Carpal bones are normally aligned. No suspicious bony lesions. Soft tissues: No suspicious soft tissue calcifications. IMPRESSION: 1. No acute osseous abnormality. 2. No definite soft tissue mass visualized radiographically. If clinical suspicion for a mass persists, consider additional imaging such as MRI. Dictated by: Sujit Siegel M.D. on 04/11/2022 at 12:26 Approved by: Sujit Siegel M.D. on 04/11/2022 at 12:36
== END ==
PROVIDERS: PCP Registered Nurse Diabetes Educator; Referring Provider Registered Nurse Diabetes Educator; Visit Provider Registered Nurse Diabetes Educator
DX: R22.32 Localized swelling, mass and lump, left upper limb (principal)
CPT/HCPCS: 73130; 76882

== ENCOUNTER → 2022-06-30 14:06 | Outpatient (CLI) | payer OTHER, SELFPAY ==
--- NOTE | 2022-06-30 14:07 | DI.RAD.S_ITS ---
PROCEDURE: XR FOOT RT MIN 3V INDICATIONS: Right foot injury -1st metatarsal tenderness TECHNIQUE: 3 views of the foot were acquired. COMPARISON: None. FINDINGS: Bones: No fractures or dislocations. No suspicious bony lesions. Soft tissues: No tibiotalar joint effusion. Achilles tendon appears normal. IMPRESSION: Unremarkable right foot radiographs Approved by: Jovani Joseph M.D. on 06/30/2022 at 14:38
== END ==
PROVIDERS: PCP Registered Nurse Diabetes Educator; Referring Provider Registered Nurse; Visit Provider Registered Nurse
DX: M79.671 Pain in right foot (principal)
CPT/HCPCS: 73630

== ENCOUNTER → 2022-10-11 09:15 | Outpatient (CLI) | payer OTHER, SELFPAY ==
[2022-10-11 10:22] LABS: COVID19 -Nasal RAPID Negative (Negative)
--- NOTE | 2022-10-11 19:18 | DI.NM.S_ITS ---
DATE OF SERVICE: 10/11/2022 PROCEDURE: Exercise perfusion study. INDICATION: Chest pain, family history of coronary artery disease. RADIOPHARMACEUTICAL: 23.8 millicurie technetium-99m Myoview IV was injected at stress and 8.0 millicurie technetium-99m Myoview IV was injected at rest. CARDIAC STRESS: The patient underwent exercise perfusion study under the supervision of an attending staff using standard Alexander protocol. She walked on Alexander protocol for 9 minutes and 31 seconds, achieved maximum heart rate of 154, which was 92 percent of target heart rate. Baseline blood pressure 123/68 mmHg. Peak blood pressure 188/78 mmHg. SHAINA -25 percent. The patient achieved 10.1 METs of workload. Baseline rhythm was sinus. During exercise and stress, no convincing ischemic changes seen. No significant arrhythmias. No chest pain. The patient felt fatigue. RAW DATA: Increased subdiaphragmatic activity. GATED STUDY: Stress LV ejection fraction is 76 percent without any obvious wall motion abnormalities. TID ratio 0.76, which is within normal limits. Lung/heart ratio 0.40, which is within normal limits. MYOCARDIAL PERFUSION SCAN: Stress supine images revealed small size, mildly decreased perfusion of basal inferior wall. Resting supine images revealed small size, mildly decreased perfusion of distal anteroseptum, apex, as well as basal inferior wall. Stress prone images revealed normal myocardial perfusion. CONCLUSION: I will call this study a normal myocardial perfusion with evidence of tissue attenuation artifact, which got resolved during stress prone images. Stress prone images revealed normal myocardial perfusion. Preserved left ventricular function. Excellent exercise tolerance. Functional aerobic impairment -25 percent. Normal hemodynamic response. No ischemic electrocardiographic changes or significant arrhythmias or anginal symptoms. Overall, low-risk exercise perfusion study. Lakshmi Herman - ZEENAT/tyler/gilberto doc#: [id number]/job#: [id number] dd: 10/11/2022 17:03:00 dt: 10/11/2022 19:06:00 DICTATING MD/COPIES TO: Darrel Chatterjee MD COPIES MNE: ELHAM;
== END ==
PROVIDERS: PCP Registered Nurse Diabetes Educator; Referring Provider Internal Medicine Cardiovascular Disease; Visit Provider Internal Medicine Cardiovascular Disease
DX: R07.89 Other chest pain (principal); R00.2 Palpitations; Z20.822 Contact with and (suspected) exposure to COVID-19; Z82.49 Family history of ischemic heart disease and other diseases of the circulatory system
CPT/HCPCS: 78452; 87635; 93017; A9502

== ENCOUNTER → 2023-03-18 08:24 | Outpatient (CLI) | payer OTHER, SELFPAY ==
[2023-03-18 09:41] LABS: Alanine Aminotransferase 27 IU/L (<35); Albumin 4.1 g/dL (3.5-5.0); Albumin Globulin Ratio 1.5 (1.0-2.8); Alkaline Phosphatase 74 U/L (38-126); Aspartate Aminotransferase 23 IU/L (14-36); BUN Creatinine Ratio 18.8 (6-22); Bilirubin Total 0.5 mg/dL (0.2-1.3); Blood Urea Nitrogen 16 mg/dL (7-17); Calcium 8.8 mg/dL (8.4-10.2); Carbon Dioxide 29 mmol/L (22-32); Chloride 103 mmol/L (98-107); Cholesterol 253 mg/dL (140-199); Estimated Glomerular Filt Rate > 60 mL/min (>60); Globulin 2.8 g/dL (1.7-4.1); Glucose 91 mg/dL (70-100); HDL Cholesterol 74 mg/dL (40-60); HEMOLYSIS < 15 (0-50); LDL Cholesterol Calculated 153 mg/dL (<100); Potassium 4.2 mmol/L (3.4-5.1); Sodium 136 mmol/L (137-145); Total Protein 6.9 g/dL (6.3-8.2); Triglycerides 128 mg/dL (35-150)
[2023-03-18 09:44] LABS: Add Manual Diff / Slide Review NO; Basophils Absolute Auto 0 /uL (0-100); Basophils Percent Auto 0.7 % (0-2); Eosinophils Absolute Auto 200 /uL (0-450); Eosinophils Percent Auto 2.5 % (2-4); Hematocrit 40.7 % (36-46); Hemoglobin 13.9 g/dL (12.0-16.0); Lymphocytes Absolute Auto 2000 /uL (1100-4500); Lymphocytes Percent Auto 30.2 % (25-40); Mean Corpuscular HGB Conc 34.1 % (30-36); Mean Corpuscular Hemoglobin 28.8 PG (26-34); Mean Corpuscular Volume 84.6 fL (80-100); Monocytes Absolute Auto 400 /uL (0-900); Monocytes Percent Auto 6.6 % (3-14); Neutrophils Absolute Auto 4000 /uL (1500-7000); Platelet Count 203 X10^3/uL (150-400); Red Blood Cell Count 4.81 X10^6/uL (4.0-5.2); Red Cell Distribution Width 12.8 % (11.6-14.8); White Blood Cell Count 6.6 X10^3/uL (4.5-11.0)
[2023-03-18 09:58] LABS: Free T3, Triiodothyronine Free 4.07 pg/mL (2.77-5.27); Free T4, Direct Thyroxine 0.86 ng/dL (0.78-2.19)
[2023-03-18 10:12] LABS: Thyroid Stimulating Hormone 3.15 uIU/mL (0.47-4.68)
[2023-03-18 23:12] LABS: Thyroid Peroxidase Antibodies 16 IU/mL (0-34)
== END ==
PROVIDERS: PCP Registered Nurse Diabetes Educator; Referring Provider Naturopath; Visit Provider Naturopath
DX: Z00.00 Encounter for general adult medical examination without abnormal findings (principal); N95.1 Menopausal and female climacteric states; R53.83 Other fatigue
CPT/HCPCS: 36415; 80053; 80061; 84439; 84443; 84481; 85025; 86376

== ENCOUNTER → 2023-04-04 15:18 | Outpatient (CLI) | payer OTHER, SELFPAY ==
--- NOTE | 2023-04-04 | DI.MG.S_ITS ---
BILATERAL DIGITAL SCREENING MAMMOGRAM 3D/2D WITH CAD: 04/04/2023 CLINICAL: Routine screening. Comparison is made to exam dated: 03/29/2022 mammogram - [facility]. There are scattered areas of fibroglandular density in both breasts (category b / 25%-50% glandular tissue). Current study was also evaluated with a Computer Aided Detection (CAD) system. There is a 0.6 cm oval equal density focal asymmetry in the right breast at 3 o'clock middle depth. This is more prominent and increased in size. No other significant masses, calcifications, or other findings are seen in either breast. IMPRESSION: INCOMPLETE: NEEDS ADDITIONAL IMAGING EVALUATION The 0.6 cm oval equal density focal asymmetry in the right breast resembles a cyst or a lymph node and is indeterminate. Additional views with possible ultrasound are recommended. Based on the Tyrer Cuzick model (a risk assessment model) the patient's lifetime risk is 8.2% and her 10 year risk is 2.2%. According to the ACR, ACS, and NCCN guidelines, an annual breast MRI exam along with mammogram is recommended if the patient's lifetime risk is 20% or greater. This exam was interpreted at Station ID: [id number]. NOTE: For mammograms, a report in lay terms will be sent to the patient. Approximately 15% of breast malignancies will not be visualized mammographically. In the management of a palpable breast mass, a negative mammogram must not discourage biopsy of a clinically suspicious lesion. Electronically Signed By: Husam ma/tonya:04/05/2023 17:27:18 letter sent: Additional Imaging Needed ACR BI-RADS Category 0: Incomplete 3340F
== END ==
PROVIDERS: PCP Registered Nurse Diabetes Educator; Referring Provider Naturopath; Visit Provider Naturopath
DX: Z12.31 Encounter for screening mammogram for malignant neoplasm of breast (principal)
CPT/HCPCS: 77063; 77067

== ENCOUNTER → 2023-05-02 13:14 | Outpatient (CLI) | payer OTHER, SELFPAY ==
--- NOTE | 2023-05-02 13:16 | DI.MG.S_ITS ---
UNILATERAL RIGHT DIGITAL DIAGNOSTIC MAMMOGRAM 3D/2D WITH ADDITIONAL VIEWS: 05/02/2023 CLINICAL: Additional evaluation requested from prior study. Comparison is made to exams dated: 03/29/2022 mammogram and 04/04/2023 mammogram - [facility]. There are scattered areas of fibroglandular density in the right breast (category b / 25%-50% glandular tissue). There is a 0.5 cm oval equal density focal asymmetry with a circumscribed margin in the right breast at 3 o'clock middle depth. This is seen in additional views. No other significant masses or calcifications are seen in the breast. IMPRESSION: INCOMPLETE: NEEDS ADDITIONAL IMAGING EVALUATION The 0.5 cm oval equal density focal asymmetry in the right breast resembles a cyst or a lymph node and is indeterminate. An ultrasound is recommended. Based on the Tyrer Cuzick model (a risk assessment model) the patient's lifetime risk is 8.2% and her 10 year risk is 2.3%. According to the ACR, ACS, and NCCN guidelines, an annual breast MRI exam along with mammogram is recommended if the patient's lifetime risk is 20% or greater. This exam was interpreted at Station ID: [id number]. NOTE: For mammograms, a report in lay terms will be sent to the patient. Approximately 15% of breast malignancies will not be visualized mammographically. In the management of a palpable breast mass, a negative mammogram must not discourage biopsy of a clinically suspicious lesion. Electronically Signed By: Sujit samson/tonya:05/02/2023 15:47:45 ACR BI-RADS Category 0: Incomplete 3340F
--- NOTE | 2023-05-02 13:17 | DI.US.S_ITS ---
LIMITED ULTRASOUND OF RIGHT BREAST AND AXILLA: 05/02/2023 CLINICAL: Additional views of right breast. Comparison is made to exams dated: 05/02/2023 mammogram, 04/04/2023 mammogram, and 03/29/2022 mammogram - [facility]. Color flow ultrasound of the right breast 3-4 o'clock, and axilla regions was performed. Duque scale images of the real-time examination were reviewed. There is a 0.4 cm x 0.5 cm x 0.2 cm oval cyst with a smooth internal wall in the right breast at 3 o'clock middle depth 3 cm from the nipple. This oval cyst is hypoechoic. This correlates with mammography findings. Color flow imaging demonstrates that there is no vascularity present. No significant abnormalities were seen sonographically in the right axilla. IMPRESSION: PROBABLY BENIGN The 0.4 cm x 0.5 cm x 0.2 cm oval cyst in the right breast is consistent with a complicated cyst and is probably benign. A follow-up right ultrasound in 6 months is recommended to demonstrate stability. This exam was interpreted at Station ID: [id number]. Electronically Signed By: Sujit samson/tonya:05/02/2023 15:49:25 letter sent: Followup Recommended Ultrasound BI-RADS: 3 Probably benign
== END ==
PROVIDERS: PCP Naturopath; Referring Provider Naturopath; Visit Provider Naturopath
DX: R92.8 Other abnormal and inconclusive findings on diagnostic imaging of breast (principal); N60.01 Solitary cyst of right breast
CPT/HCPCS: 76642; 77065; G0279

== ENCOUNTER 2023-05-22 09:40 | Day surgery (SDC) | payer OTHER, SELFPAY ==
[2023-05-16 15:04] VITALS: BMI 32.3
[2023-05-22] VITALS (7 sets, daily range): BP systolic 103–129; BP diastolic 48–83; PULSE 68–83; RESP 14–16; TEMP 36.3–37.5; O2SAT 95–98; BMI 32.3
[2023-05-22] MEDS: LACTATED RINGERS 1,000 ML 42 ML IV (10:26)
--- NOTE | 2023-05-22 11:21 | PM.PREOP ---
Pre-operative Note Interval Note History & Physical reviewed/Exam performed by Physician: Yes Changes to H&P: No
--- NOTE | 2023-05-22 11:21 | PM.OP.1 ---
Operative Date/Time/Diagnoses Date of procedure: 05/22/23 Time of procedure: 11:21 Pre-op diagnosis: Right sesamoiditis, suspected tibial sesamoid fracture Post-op diagnosis: same Procedure & Clinicians Procedure: Right tibial sesamoid excision foot Same procedure as scheduled: Yes Indications: 53-year-old female with painful right 1st metatarsophalangeal tibial sesamoiditis. Fracture is suspected. Conservative measures have failed to alleviate her pain and she wished to have surgical intervention at this time. We spoke of the risks, potential complications, alternatives, and expected outcomes. Consent was signed, there were no contraindication to the procedure at this time. Surgeon: Frances Kirk Click Yes if Unassisted: Yes Anesthesia Type: General Operative Notes Closure Type: primary Specimen(s): none sent Estimated Blood Loss (mL): 20 Blood products transfused: none Tourniquet time (min): 41 Procedure in detail: The patient was brought to the operating room and placed on the operating table in the supine position.The tourniquet was placed about the right ankle. Well padded, appropriately aligned. Alcohol prep to the foot and recorded anesthesia injectables were delivered to the area of the sesamoids under the first metatarsal head right foot. After induction of general anesthesia the foot and ankle were prepped and draped in the usual aseptic manner. The tourniquet was inflated. Incision was made over the 1st metatarsal head plantarly, slightly medial of center over the tibial sesamoid fragments. The incision was deepened through subcutaneous tissues being careful to identify and retract all vital neurovascular structures. All bleeders were cauterized and ligated as necessary. The flexor tendon was gently divided to expose the tibial sesamoid. The sesamoid had two parts, and each was easily removed from within the tendon although were fairly adhered to the head. The larger fragment was about a cm in length and slightly less in width, and the smaller fragment about half that. They were inspected as was the foot and appeared to have been excised in toto. The area was irrigated with copious amounts normal sterile saline. Based on the location of the tibial sesamoid being fairly medial, there was not much tendon fragment to coapt back together. The fibular sesamoid remained intact. Deep and subcutaneous closure was closed performed with Vicryl. Nylon suture used to close the skin. The tourniquet was deflated and a prompt hyperemic response was seen in the foot. The foot was dressed with a lightly compressive sterile dressing. Patient was then placed in a postoperative boot and transferred to PACU with vital signs stable. Complications: none Post-operative Condition: stable Disposition: PACU Plan for aftercare: Following a period of postoperative monitoring, the patient will be discharged to home on written and oral postoperative instructions including keeping the dressing dry and intact, no weight to the surgical foot, icing and elevating the foot when seated home. DVT prevention techniques have been reviewed. For the 1st postoperative visit the dressing will be changed and close to the 3rd postoperative week we will likely remove the sutures.
[2023-05-22] MEDS: CEFAZOLIN 2 GM/100 ML PREMIX 100 ML IV (11:45)
--- NOTE | 2023-05-22 12:00 | SUR.OPER ---
Supine on padded OR bed, head on pillow, arms secured on padded arm boards at <90 degrees abduction, legs uncrossed, safety belt at thigh, tape over blanket over lower legs.
[2023-05-22] MEDS: BUPIVACAINE 0.5% (PF) 10 ML VIAL INJ (12:08)
[2023-05-22] MEDS: LACTATED RINGERS 1,000 ML 120 ML IV (12:13)
[2023-05-22] MEDS: HYDROCODONE/ACET 5/325 TABLET 1 TAB PO ×2 (13:08→13:39)
--- NOTE | 2023-05-22 13:24 | SUR.PHASEII ---
Report given to
== END 2023-05-22 14:40 | disposition home or self-care (01) ==
PROVIDERS: PCP Naturopath; Referring Provider Podiatrist; Visit Provider Podiatrist
PROC: (CPT 64782; principal; 2023-05-22 11:30)
DX: S92.811A Other fracture of right foot, initial encounter for closed fracture (principal); M25.871 Other specified joint disorders, right ankle and foot
CPT/HCPCS: 28315; J0690; J3010

== ENCOUNTER → 2023-06-28 09:27 | Outpatient (CLI) | payer OTHER, SELFPAY ==
[2023-06-28 11:00] LABS: Cholesterol 258 mg/dL (140-199); HDL Cholesterol 67 mg/dL (40-60); LDL Cholesterol Calculated 157 mg/dL (<100); Triglycerides 168 mg/dL (35-150)
[2023-06-28 11:08] LABS: Free T3, Triiodothyronine Free 4.48 pg/mL (2.77-5.27); Free T4, Direct Thyroxine 0.95 ng/dL (0.78-2.19)
[2023-06-28 11:22] LABS: Thyroid Stimulating Hormone 1.59 uIU/mL (0.47-4.68)
== END ==
PROVIDERS: PCP Naturopath; Referring Provider Naturopath; Visit Provider Naturopath
DX: E78.5 Hyperlipidemia, unspecified (principal); E03.9 Hypothyroidism, unspecified
CPT/HCPCS: 36415; 80061; 84439; 84443; 84481

== ENCOUNTER → 2023-11-08 08:50 | Outpatient (CLI) | payer BC, SELFPAY ==
[2023-11-08 10:27] LABS: Cholesterol 139 mg/dL (140-199); HDL Cholesterol 54 mg/dL (40-60); LDL Cholesterol Calculated 65 mg/dL (<100); Triglycerides 99 mg/dL (35-150)
== END ==
LOC: LAB 08:53
PROVIDERS: PCP Naturopath; Referring Provider Naturopath; Visit Provider Naturopath
DX: E78.5 Hyperlipidemia, unspecified (principal)
CPT/HCPCS: 36415; 80061

== ENCOUNTER → 2023-11-18 14:10 | Outpatient (CLI) | payer BC, SELFPAY ==
--- NOTE | 2023-11-18 | DI.US.S_ITS ---
ULTRASOUND OF RIGHT BREAST: 11/18/2023 CLINICAL: Patient returns today to evaluate a focal asymmetry in the right breast. Comparison is made to exams dated: 05/02/2023 mammogram, 05/02/2023 ultrasound, 04/04/2023 mammogram, and 03/29/2022 mammogram - [facility]. Color flow and real-time ultrasound of the right breast were performed on the areas of interest. Duque scale images of the real-time examination were reviewed. There is an oval cyst with a smooth internal wall in the right breast at 4 o'clock middle depth. This oval cyst is hypoechoic. This abnormality is decreased in size. Color flow imaging demonstrates that there is no vascularity present. IMPRESSION: PROBABLY BENIGN The oval cyst in the right breast is consistent with a complicated cyst and is probably benign. A follow-up ultrasound in 6 months is recommended to demonstrate stability. This exam was interpreted at Station ID: [id number]. Electronically Signed By: Ernestina chowdary/:11/18/2023 14:39:46 letter sent: Followup Recommended Ultrasound BI-RADS: 3 Probably benign
== END ==
PROVIDERS: PCP Naturopath; Referring Provider Naturopath; Visit Provider Naturopath
DX: R92.2 Inconclusive mammogram (principal); N60.01 Solitary cyst of right breast
CPT/HCPCS: 76642

== ENCOUNTER 2023-12-13 11:58 | Day surgery (SDC) | payer BC, SELFPAY ==
[2023-12-13 12:59] VITALS: BP 140/75; PULSE 67; RESP 16; TEMP 36.2; O2SAT 98; BMI 32.4
[2023-12-13] MEDS: LACTATED RINGERS 1,000 ML 42 ML IV (13:04)
--- NOTE | 2023-12-13 13:49 | PM.PREOP ---
Pre-operative Note Interval Note History & Physical reviewed/Exam performed by Physician: Yes Changes to H&P: No
--- NOTE | 2023-12-13 13:49 | PM.OP.1 ---
Operative Date/Time/Diagnoses Date of procedure: 12/13/23 Time of procedure: 13:50 Pre-op diagnosis: Right plantar first metatarsal head skin scar tissue, suspect granuloma Post-op diagnosis: other (Right plantar first metatarsal head area scar tissue) Procedure & Clinicians Procedure: Right plantar first metatarsal head area excision scar tissue from prior incisional scar. Same procedure as scheduled: Yes Indications: 53-year-old female with painful scarring and suspected granulomatous fibrous tissue to the healed incision on the plantar surface of the 1st metatarsal head of the right foot. Conservative measures have failed to alleviate this pain or reduce the nodules and she wished to have surgical intervention this time. We spoke of the risks and potential complications as well as expected outcomes of the procedure and alternatives. Consent was signed in the room no contraindications to the procedure at this time. Surgeon: Frances Kirk Click Yes if Unassisted: Yes Anesthesia Type: MAC +/- and Sedation Operative Notes Closure Type: primary Specimen(s): none sent Estimated Blood Loss (mL): 5 Blood products transfused: none Tourniquet time (min): 0 Procedure in detail: Patient was brought to the operating room and placed on the operating table in a supine position. After an induction of mild IV sedation, local anesthesia was performed to the plantar 1st metatarsal head area of the right foot using the recorded injectables. The foot and ankle were then prepped and draped the usual aseptic manner. After a check of anesthesia, 2 converging semi elliptical incisions were made at the most proximal aspect of the of scarred area where a firm nodule was felt under the skin. As this was excised it was inspected and of found to be thick fibrous scar tissue some more into the subcutaneous tissue and some actually adhered to the underlying dermis. This measured about 8 x 3 mm and was passed from the field. A 2nd location just distal to this was excised in the same manner although this was more linear and measured about 9 x 3 mm. This location also showed thick adherence within the skin and then a little deeper into the tissues but no granulomas, abscesses, or foreign substances were noted in these areas. The areas were irrigated with copious amounts of normal sterile saline and care was taken to manipulate the tissue and verify that no further nodular prominences were felt of scar tissue. Very careful repair of the skin was performed using 3-0 nylon. The area was dressed with Xeroform 4x4s Kerlix and an Adis wrap as well as stockinette. She was transferred the PACU with vital signs stable and vascular status intact. Complications: none Post-operative Condition: stable Disposition: PACU Plan for aftercare: Following a period of postoperative monitoring, the patient will be discharged to home on written and oral postoperative instructions including keeping the dressing dry and intact, no greater than 50% weight to the surgical foot, icing and elevating the foot when seated home. DVT prevention techniques have been reviewed. For the 1st postoperative visit the dressing will be changed and close to the 3rd postoperative week we will likely remove the sutures.
[2023-12-13] MEDS: CEFAZOLIN 2 GM/100 ML PREMIX 100 ML IV (13:59)
--- NOTE | 2023-12-13 14:15 | SUR.OPER ---
Supine on padded OR bed, head on pillow, arms secured on padded arm boards at <90 degrees abduction, legs uncrossed, safety belt at thigh, tape over blanket over lower legs.
[2023-12-13] MEDS: BUPIVACAINE 0.5% (PF) 10 ML VIAL INJ (14:21)
[2023-12-13] MEDS: LIDOCAINE 2% INJ SDV 5ML 5 ML INJ (14:22)
[2023-12-13 14:51] VITALS: BP 104/58; PULSE 60; RESP 10; O2SAT 97
[2023-12-13 14:56] VITALS: BP 113/77; PULSE 59; RESP 12; O2SAT 98
[2023-12-13 15:02] VITALS: BP 110/67; PULSE 61; RESP 18; O2SAT 99
[2023-12-13 15:12] VITALS: BP 117/59; PULSE 56; RESP 12; TEMP 36.6; O2SAT 99
== END 2023-12-13 15:55 | disposition home or self-care (01) ==
PROVIDERS: PCP Naturopath; Referring Provider Podiatrist; Visit Provider Podiatrist
PROC: (CPT 11422; principal; 2023-12-13 13:45)
DX: L90.5 Scar conditions and fibrosis of skin (principal)
CPT/HCPCS: 11422; J0690; J2250; J2704; J3010

== ENCOUNTER → 2024-03-25 08:36 | Outpatient (CLI) | payer BC, SELFPAY ==
[2024-03-25 10:26] LABS: Add Manual Diff / Slide Review NO; Basophils Absolute Auto 0 /uL (0-100); Basophils Percent Auto 0.7 % (0-2); Eosinophils Absolute Auto 100 /uL (0-450); Eosinophils Percent Auto 2.2 % (2-4); Lymphocytes Absolute Auto 1700 /uL (1100-4500); Lymphocytes Percent Auto 26.3 % (25-40); Mean Corpuscular HGB Conc 33.3 % (30-36); Mean Corpuscular Hemoglobin 28.1 PG (26-34); Mean Corpuscular Volume 84.4 fL (80-100); Monocytes Absolute Auto 400 /uL (0-900); Monocytes Percent Auto 6.1 % (3-14); Neutrophils Absolute Auto 4300 /uL (1500-7000); Neutrophils Percent Auto 64.7 % (50-75); Platelet Count 212 X10^3/uL (150-400); Red Blood Cell Count 4.98 X10^6/uL (4.0-5.2); Red Cell Distribution Width 13.4 % (11.6-14.8); White Blood Cell Count 6.6 X10^3/uL (4.5-11.0)
[2024-03-25 10:47] LABS: Alanine Aminotransferase 27 IU/L (<35); Albumin 4.3 g/dL (3.5-5.0); Albumin Globulin Ratio 1.8 (1.0-2.8); Alkaline Phosphatase 74 U/L (38-126); Aspartate Aminotransferase 27 IU/L (14-36); BUN Creatinine Ratio 17.4 (6-22); Bilirubin Total 0.6 mg/dL (0.2-1.3); Blood Urea Nitrogen 15 mg/dL (7-17); Calcium 9.2 mg/dL (8.4-10.2); Carbon Dioxide 27 mmol/L (22-32); Chloride 105 mmol/L (98-107); Cholesterol 187 mg/dL (140-199); Estimated Glomerular Filt Rate > 60 mL/min (>60); Globulin 2.4 g/dL (1.7-4.1); Glucose 94 mg/dL (70-100); HDL Cholesterol 78 mg/dL (40-60); HEMOLYSIS < 15 (0-50); LDL Cholesterol Calculated 88 mg/dL (<100); Potassium 4.3 mmol/L (3.4-5.1); Sodium 138 mmol/L (137-145); Total Protein 6.7 g/dL (6.3-8.2); Triglycerides 105 mg/dL (35-150)
[2024-03-25 11:16] LABS: Thyroid Stimulating Hormone 1.15 uIU/mL (0.47-4.68)
== END ==
PROVIDERS: PCP Naturopath; Referring Provider Naturopath; Visit Provider Naturopath
DX: Z00.00 Encounter for general adult medical examination without abnormal findings (principal); E03.9 Hypothyroidism, unspecified; E78.5 Hyperlipidemia, unspecified
CPT/HCPCS: 36415; 80053; 80061; 84443; 85025

== ENCOUNTER → 2024-06-19 13:12 | Outpatient (CLI) | payer BC, SELFPAY ==
--- NOTE | 2024-06-19 13:14 | DI.MG.S_ITS ---
BILATERAL DIGITAL DIAGNOSTIC MAMMOGRAM 3D/2D: 06/19/2024 CLINICAL: Short term follow up of the right breast, due for bilateral imaging. Comparison is made to exams dated: 05/02/2023 mammogram, 04/04/2023 mammogram, 03/29/2022 mammogram, 11/18/2023 ultrasound, and 05/02/2023 ultrasound - [facility]. There are scattered areas of fibroglandular density in both breasts (category b / 25%-50% glandular tissue). There is a 0.5 cm oval equal density focal asymmetry with a circumscribed margin in the right breast at 3 o'clock middle depth. This is less prominent. No other significant masses, calcifications, or other findings are seen in either breast. IMPRESSION: INCOMPLETE: NEEDS ADDITIONAL IMAGING EVALUATION The 0.5 cm oval equal density focal asymmetry in the right breast is indeterminate. A targeted ultrasound is recommended and will immediately follow. Based on the Tyrer Cuzick model (a risk assessment model) the patient's lifetime risk is 8.2% and her 10 year risk is 2.5%. According to the ACR, ACS, and NCCN guidelines, an annual breast MRI exam along with mammogram is recommended if the patient's lifetime risk is 20% or greater. This exam was interpreted at Station ID: [id number]. NOTE: For mammograms, a report in lay terms will be sent to the patient. Approximately 15% of breast malignancies will not be visualized mammographically. In the management of a palpable breast mass, a negative mammogram must not discourage biopsy of a clinically suspicious lesion. Electronically Signed By: Gian Mosley M.D. slc/:06/19/2024 14:04:55 ACR BI-RADS Category 0: Incomplete 3340F
--- NOTE | 2024-06-19 13:14 | DI.US.S_ITS ---
LIMITED ULTRASOUND OF RIGHT BREAST AND AXILLA: 06/19/2024 CLINICAL: Patient returns today to evaluate a focal asymmetry in the right breast. Comparison is made to exams dated: 06/19/2024 mammogram, 11/18/2023 ultrasound, 05/02/2023 ultrasound, 04/04/2023 mammogram, 05/02/2023 mammogram, and 03/29/2022 mammogram - [facility]. Color flow and real-time ultrasound of the right breast 3 o'clock, and axilla regions were performed. Duque scale images of the real-time examination were reviewed. There is a 0.4 cm x 0.3 cm x 0.2 cm oval complicated cyst with a smooth internal wall in the right breast at 3 o'clock middle depth 3 cm from the nipple. This oval complicated cyst is hypoechoic. This abnormality is decreased in size. Color flow imaging demonstrates that there is no vascularity present. Mildly prominent right axillary nodes are unchanged and benign. No cortical thickening. Preserved fatty kp. IMPRESSION: PROBABLY BENIGN The 0.4 cm complicated cyst in the right breast is probably benign. A follow-up ultrasound in 12 months is recommended to demonstrate long-term stability. Patient will be due for mammogram at that time. Exam findings were conveyed to the patient. This exam was interpreted at Station ID: [id number]. Electronically Signed By: Gian Mosley M.D. [facility]/:06/19/2024 15:23:01 letter sent: Followup Recommended Ultrasound BI-RADS: 3 Probably benign
== END ==
PROVIDERS: PCP Student in an Organized Health Care Education/Training Program; Referring Provider Student in an Organized Health Care Education/Training Program; Visit Provider Student in an Organized Health Care Education/Training Program
DX: R92.8 Other abnormal and inconclusive findings on diagnostic imaging of breast (principal); N64.89 Other specified disorders of breast; N60.01 Solitary cyst of right breast
CPT/HCPCS: 76642; 77066; G0279

== ENCOUNTER 2024-08-14 06:30 | Day surgery (SDC) | payer BC, SELFPAY ==
[2024-08-05 15:28] VITALS: BMI 32.1
[2024-08-11 11:37] VITALS: BMI 32.1
[2024-08-14] VITALS (8 sets, daily range): BP systolic 126–150; BP diastolic 60–80; PULSE 56–82; RESP 12–17; TEMP 36.3–36.5; O2SAT 96–98; BMI 31.1
--- NOTE | 2024-08-14 08:04 | P.OP_ITS ---
Operative Date/Time/Diagnoses Date of procedure: 08/14/24 Time of procedure: 08:08 Pre-op diagnosis: Left midfoot bone spur with arthritis, neuritis Post-op diagnosis: same Procedure & Clinicians Procedure: Left midfoot exostectomy at first metatarsocuneiform joint Same procedure as scheduled: Yes Indications: 54 yo female with painful bony prominence on the top of her left foot. Conservative measures have failed to alleviate her pain and she wished to have surgical intervention at this time. We spoke of the risks, potential complications, alternatives, and expected outcomes. Consent was signed, no contraindications to the procedure at this time. Surgeon: Frances Kirk Click Yes if Unassisted: Yes Anesthesia Type: General Operative Notes Closure Type: primary Specimen(s): none sent Estimated Blood Loss (mL): 20 Blood products transfused: none Tourniquet time (min): 26 Procedure in detail: The patient was brought to the operating room and placed on the operating table in the supine position. The tourniquet was placed about the left ankle. Well- padded, appropriately aligned. After induction of anesthesia the left foot and ankle were prepped and draped in the usual aseptic manner. The tourniquet was inflated. Incision was made over the left dorsal first metatarsal cuneiform joint. The incision was deepened through subcutaneous tissues being careful to identify and retract all vital neurovascular structures. All bleeders were cauterized and ligated as necessary. The dorsal cutaneous nerve was seen directly over the prominent capsule of the spur of the joint there. Attention was then directed to the enlarged dorsal metatarsocuneiform joint whi ch, with careful exposure, the capsule was entered and showed elements of bony spurring on either side. A saw was used to reduce the spurring on either side of the dorsal aspect of the joint. A manual rasp was used as well. A tiny ganglion cyst appeared to drain two drops of [id number] fluid from the lateral tissues of the joint but the cyst tissue, decompressed, was not seen. The area was irrigated with copious amounts normal sterile saline. Tourniquet was deflated and a prompt hyperemic response was seen to the foot. The dorsal cutaneous nerve was noted and prior to closure, Dexamethasone phosphate 4mg was gently applied over the nerve. Subcutaneous closure was performed using Vicryl and nylon was used to close the skin. A sterile lightly compressive dressing was placed on the foot. She was transferred to the PACU with vital signs stable and vascular status intact. Complications: none Post-operative Condition: stable Disposition: PACU Plan for aftercare: Following a period of postoperative monitoring, the patient will be discharged to home on written and oral postoperative instructions including keeping the dressing dry and intact, [no greater than 50% weight to the surgical foot, icing and elevating the foot when seated home. DVT prevention techniques have been reviewed. For the 1st postoperative visit the dressing will be changed and close to the 2 1/2-3rd postoperative week we will likely remove the sutures.
--- NOTE | 2024-08-14 08:04 | PM.PREOP ---
Pre-operative Note Interval Note History & Physical reviewed/Exam performed by Physician: Yes Changes to H&P: No
[2024-08-14] MEDS: CEFAZOLIN 2 GM/100 ML PREMIX 100 ML IV (09:00)
[2024-08-14] MEDS: BUPIVACAINE 0.5% (PF) 30 ML VIAL INJ (09:04)
[2024-08-14] MEDS: LIDOCAINE 2% INJ MDV 20ML 20 ML INJ (09:05)
--- NOTE | 2024-08-14 09:24 | SUR.OPER ---
Supine on padded OR bed. Pillow under head, arms secured on padded armboards <90 degree abduction. Safety belt across torso. Non-operative leg secured with tape over blanket over lower leg. Operative leg not draped, held on field.
[2024-08-14] MEDS: DEXAMETHASONE 4 MG/ML VIAL INJ (09:54)
[2024-08-14] MEDS: HYDROCODONE/ACET 5/325 TABLET 1 TAB PO (10:34)
[2024-08-14] MEDS: KETOROLAC 30 MG/ML VIAL IV (10:49)
[2024-08-14] MEDS: OXYCODONE IR 5 MG TABLET PO (11:28)
== END 2024-08-14 11:31 | disposition home or self-care (01) ==
PROVIDERS: PCP Student in an Organized Health Care Education/Training Program; Referring Provider Podiatrist; Visit Provider Podiatrist
PROC: (CPT 28122; principal; 2024-08-14 07:45)
DX: M19.072 Primary osteoarthritis, left ankle and foot (principal); M77.52 Other enthesopathy of left foot and ankle
CPT/HCPCS: 28122; J0690; J1100; J1885; J2704; J3010

== ENCOUNTER → 2025-07-23 13:22 | Outpatient (CLI) | payer BC, SELFPAY ==
--- NOTE | 2025-07-23 13:23 | DI.MG.S_ITS ---
MM diagnostic mammo BI, US breast RT limited: 07/23/2025 BI-RADS: 2 CLINICAL: 55-year old female for bilateral diagnostic mammogram and right diagnostic breast ultrasound that is a follow-up to ultrasound, right on 06/19/2024. Tyrer- Cuzick lifetime risk of 7.4%. No personal or first-degree family history of breast cancer. PRIOR EXAMS 06/19/2024, 11/18/2023, 05/02/2023, 04/04/2023. MAMMOGRAPHY TECHNIQUE: 2D and 3D (tomosynthesis) digital mammographic views obtained, with additional images as needed for full coverage. Current study was also evaluated with a Computer Aided Detection (CAD) system. ULTRASOUND TECHNIQUE Real-time ramey scale and color doppler imaging of the area of clinical interest was performed with image documentation. DENSITY B. There are scattered areas of fibroglandular density. MAMMOGRAPHY FINDINGS Right: Lower Inner at 3:00, Middle depth: There is a focal asymmetry present. This finding is less prominent since prior mammograms dating back to April 2023. Left: No suspicious mass, asymmetry, microcalcification, or other abnormality seen. ULTRASOUND FINDINGS Right: Inner at 3:00, 3 cm from nipple, measuring 0.3 x 0.4 x 0.2 cm: Correlating with findings on mammogram, there is a simple cyst. Finding has decreased since prior ultrasound in April 2023. Finding is benign. IMPRESSION: Right * No evidence of malignancy with benign findings. Left * No evidence of malignancy. RECOMMENDATIONS Bilateral * Annual screening mammography. COMMENTS: Findings and recommendations were conveyed to the patient during today's evaluation. OVERALL ASSESSMENT CATEGORY BI-RADS-2: Benign. The [employer] recommends annual screening mammography beginning at age 40 for women with average risk of breast cancer. ELECTRONICALLY SIGNED: Brenda Mills M.D. on 07/23/2025 at 03:28:50 PM PT Interpreting Station ID: [id number]
== END ==
LOC: MAMMO 13:23
PROVIDERS: PCP Student in an Organized Health Care Education/Training Program; Referring Provider Student in an Organized Health Care Education/Training Program; Visit Provider Student in an Organized Health Care Education/Training Program
DX: R92.8 Other abnormal and inconclusive findings on diagnostic imaging of breast (principal); N60.01 Solitary cyst of right breast
CPT/HCPCS: 76642; 77066; G0279